=== PATIENT | male | born 1965 | race Caucasian/White ===

== ENCOUNTER 2023-11-27 13:36 | Emergency (ER) | payer OTHER, SELFPAY ==
--- NOTE | 2023-11-27 13:42 | ED.GENADULT ---
HPI - General Adult General Chief complaint: Skin/Abscess/Foreign Body Stated complaint: Posion Jazmine/Rusk Source: patient, RN notes reviewed and old records reviewed Mode of arrival: ambulatory Limitations: no limitations History of Present Illness HPI narrative: 58-year-old male patient presents to [facility] with complaints of rash to bilateral legs and arms that started several days ago. Patient states has been treating at home but is spreading. Patient states was given triamcinolone cream yesterday. Patient is not used. Related Data Allergies Allergy/AdvReac Type Severity Reaction Status Date / Time No Known Allergies Allergy Unverified 11/27/23 13:42 Review of Systems Constitutional: Constitutional: Reports no additional constitutional complaints, Denies body ache(s), Denies chills, Denies fatigue, Denies fever(s) and Denies headache(s) Eyes: Eyes: Reports no additional eye complaints and Denies blurry vision ENT: Reports system reviewed and no additional complaints, except as documented, Denies vertigo, Denies dizziness, Denies ear discharge, Denies otalgia, Denies facial pain, Denies headache(s), Denies nasal congestion, Denies nasal discharge, Denies sinus pain, Denies sinus pressure and Denies sore throat Cardiovascular: Cardiovascular: Reports no additional cardiovascular complaints, Denies chest pain, Denies chest pain at rest, Denies rapid heart rate and Denies dyspnea Respiratory: Respiratory: Reports no additional respiratory complaints, Denies chest congestion, Denies cough, Denies pain on inspiration, Denies pain with cough and Denies dyspnea Gastrointestinal: Gastrointestinal: Denies abdominal pain, Denies diarrhea, Denies nausea and Denies vomiting Integumentary/Breasts: Skin/Breast: Reports rash Neurologic: Reports system reviewed and no additional complaints, except as documented, Denies vertigo, Denies dizziness and Denies headache(s) Endocrine: Endocrine: Denies fatigue [facility] Family History Family History Father Cerebrovascular accident Other Carcinoma of colon Social History Social History Smoking status: Never smoker Second hand tobacco smoke exposure: No Alcohol intake: current Comments At the time of my signature, I reviewed and agree with the nursing past medical, surgical, social, and family history. There is no relevant family history pertinent to the patient complaint. Exam Const: General: cooperative, healthy appearing, no acute distress and well nourished Nutritional Appearance: well nourished Orientation/consciousness: patient oriented x3 Limitations: no limitations HENMT: Head: normal to inspection and normocephalic Ears: external ears normal, TM's normal bilaterally, mastoids normal and Abnormal EAC present Face/Nose/Sinus: normal facial exam Face and sinus: normal facial exam Mouth: Yes Normal oral and palatal mucosa present, Yes oropharynx normal and Yes moist mucous membranes Throat: tonsils normal, uvula midline and no uvular edema Eyes: General: appearance normal, both eyes and all related structures Sclera: sclerae normal Pupils: Equal, round and reactive pupils present Resp: Effort & Inspection: normal respiratory effort, able to speak in complete sentences, no audible wheezes, no cough, no respiratory distress and no retractions Skin: Rashes: rashes noted ( macular vesicular rash) Full body images: 1. macular vesicular rash noted to lower bilateral legs and upper right arm drainage noted to right lower leg Neuro: General: patient oriented x3 Cranial nerves: Yes Equal, round and reactive pupils present Psych: Appearance: grossly normal Mental Status: mental status grossly normal Speech and movement: Normal speech and movement present Affect: normal affect Course Course Emergency Course: Patient is aware of diagnosis, understands
[2023-11-27 13:47] VITALS: BP 121/93; PULSE 51; RESP 18; TEMP 36.2; O2SAT 100
== END 2023-11-27 14:03 | disposition home or self-care (01) ==
PROVIDERS: Emergency Provider Registered Nurse; PCP Internal Medicine
DX: L23.7 Allergic contact dermatitis due to plants, except food (principal)
CPT/HCPCS: 99211; G0463

== ENCOUNTER 2024-02-20 07:00 | Outpatient (NON) | payer OTHER, SELFPAY | END 2024-02-20 07:01 | disposition home or self-care (01) | LOC: ANHLAB 02-21 11:20 | PROVIDERS: PCP Internal Medicine; Visit Provider Plastic Surgery | DX: M72.0 Palmar fascial fibromatosis [Dupuytren] (principal) | CPT/HCPCS: 88305 ==

== ENCOUNTER 2024-02-20 07:56 | Day surgery (SDC) | payer OTHER, SELFPAY ==
--- NOTE | 2024-02-20 06:59 | WPDHPUPDATE1 ---
History and Physical Update Update Date/Time: 02/20/24 06:59 Patient seen and examined in pre-operative holding area. No interval change in medical history or symptoms other than noting slight increased tighness to left ring and middle fingers as well. Exam consistent with slight interval increased contracture of left middle and ring fingers. discussed concurrent fasciectomy for these digits as well. Patient recalls previous discussion of benefits and alternatives to procedure. Continues to desire to proceed with left small, ring and middle finger fasciectomy. Reviewed procedure, post-op expectations and risks including but not limited to bleeding, infection, injury to tendon/nerve/vessel, decreased hand function, stiffness, RSD, no change or worsening of symptoms, recurrence, incomplete release. I discussed the possible use of assistants and their participation in the case. Patient stated understanding and signed the consent form wishing to proceed.
--- NOTE | 2024-02-20 07:00 | P.OP_ITS ---
Procedure Note - Detailed Date of Procedure 02/20/24 Pre-op Diagnosis left small, ring and middle finger dupuytren contracture Post-op Diagnosis Same Procedure Performed left small, middle and ring finger fasciectomy Surgeon Marianne Ruiz MD Screen Tender Helper Bran Martinez PA-C Anesthesia MAC Description of Procedure INFORMED CONSENT: The patient was seen and examined and marked in the pre-op area.? The patient signed the consent form. PROCEDURE IN DETAIL:The patient taken back to OR on the stretcher in supine position. Time out performed with anesthesia, surgeon and staff agreeing on patient's name site and surgery to be performed SCDs were placed on the lower extremities and inflated. A tourniquet was placed on {left} upper extremity and antibiotics given IV After anesthesia administered sedation I injected {6}cc 1%lido and 0.5% marcaine plain at the operative site The?{left upper extremity}?was prepped and draped in sterile fashion the??{left upper extremity} was? exsanguinated with Esmarch bandage and tourniquet inflated to 250mmHg I proceeded with making a longitudinal incision over the left small finger fascial cord through skin and dermis with a 15 blade scalpel. The proximal aspect of this incision was carried radial to go across the cords going to the ring and middle fingers. I elevated my skin flaps to expose the fascial cord to the small finger. I circumferentially dissected around the small finger cord near its origins proximally in the palm with the Littler scissors. I then transected the cord proximally. I proceeded with anterograde dissection of the cord identifying and protecting the neurovascular bundles while doing so. I proceeded with resection of the cord until I was able to achieve full extension of the MP and PIP joint. I irrigated with normal saline. I constructed Z- plasties crossing the flexion creases of the palm in MP joint. I closed the skin with 4-0 chromic. I elevated skin flap over the middle and ring finger cord, identified the fascial cords, circumferentially disseted around the cord and transected it and excised it in anterograde faschion until I was able to achieve full extension of the middle and ring finger mpjoints with minimal force. I irrigated with normal saline and closed skin with 4-0 chromic A dressing of xeroform, 4x4, rosanna, and an ulnar gutter splint was applied for patient safety, security, and comfort and secured with an bronwyn bandage after the tourniquet was let down noting the hand was warm and well perfused. The patient was then awaken from anesthesia and transferred to the recovery room in stable condition.? Complications - none EBL- 0cc Disposition - home in stable conditions bran martinez pa-c was essential for positioning, retraction, closure and dressing placement [facility] Billing Surgery - Charge Forward: Surgery Billing ([id number] [id number],59 same for bran adding modifier )
[2024-02-20 09:34] VITALS: BP 131/97; PULSE 46; RESP 14; TEMP 36.6; O2SAT 100
[2024-02-20] MEDS: LACTATED RINGERS 1,000 ML 30 ML IV CONT (09:45)
--- NOTE | 2024-02-20 09:45 | P.PNAN_ITS ---
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) Patient Data Age: 59 Gender: M Height: 1.91 m Weight: 108.4 kg Last Vital Signs Temp 36.6 C 02/20/24 09:34 Pulse 46 L 02/20/24 09:34 Resp 14 02/20/24 09:34 BP 131/97 H 02/20/24 09:34 Pulse Ox 100 02/20/24 09:34 O2 Del Method Room Air 02/20/24 09:34 Allergies Allergy/AdvReac Type Severity Reaction Status Date / Time No Known Allergies Allergy Verified 02/20/24 09:26 Home Medications Medication Instructions Recorded Confirmed Type acyclovir 400 mg tablet 400 mg PO TID #30 tabs 01/15/24 02/20/24 Rx Fish Oil 1 tab-cap PO DIRECTED 02/07/24 02/20/24 History Glucosamine 1 tablet PO DIRECTED 02/07/24 02/20/24 History multivitamin 1 tablet PO DAILY 02/07/24 02/20/24 History tramadol 50 mg tablet 50 mg PO Q6H PRN pain #12 tabs 02/20/24 Rx Patient hx anesthesia problems: none Family hx anesthesia problems: none Results Review: All pre-operative results and documents have been reviewed as part of the pre- operative evaluation. [facility] Family History Family History Father Cerebrovascular accident Other Carcinoma of colon Social History Social History Smoking status: Never smoker Second hand tobacco smoke exposure: No Alcohol intake: current Drinks per week: 7 Substance use: unknown Substance use type: does not use Current Housing: Decline to Answer Concerned About Future Housing: Decline to Answer Difficulty Paying Gas/Electric Bills: Decline to Answer Difficulty Paying for Meds: Decline to Answer Currently Unemployed: Decline to Answer Education: Decline to Answer Difficulty w/ Childcare or Family Care: Decline to Answer Living arrangements: with family Anes - Eval Final PreProcedure Day of Procedure 02/20/24 09:45 Patient weight: overweight Heart: regular rate and rhythm Lungs: clear to auscultation Airway: Mallampati scale class II Neurological: alert and oriented Last oral intake: >/= 8 hours ASA classification: II Emergent: no Anesthetic plan: proceed Anesthesia type and monitoring: general GIVS and standard monitoring Results Review: All pre-operative results and documents have been reviewed as part of the pre-operative evaluation. Informed Consent: The patient's anesthetic plan and its attendant risks and benefits were discussed with the patient/family/POA. Questions were solicited and answers provided to the satisfaction of the patient/family/POA.
[2024-02-20] MEDS: ceFAZolin SODIUM 2 GM/20 ML SW SYRINGE IV PUSH (10:23)
[2024-02-20] MEDS: BUPivacaine HCL 0.5% 10 ML AMP INFILTRATE (10:26)
[2024-02-20] MEDS: LIDOCAINE HCL 1% LOCAL INJ 20 ML VIAL 3 ML INFILTRATE (10:26)
--- NOTE | 2024-02-20 10:31 | SUR.PREOP ---
late note 02/20/24 0945. Pt's resting heart rate in pre-op 43-46, Dr. Rodrigez aware. No further orders at this time.
[2024-02-20 11:00] VITALS: BP 106/80; PULSE 42; RESP 16; O2SAT 94
[2024-02-20 11:25] VITALS: BP 105/75; PULSE 40; RESP 16; O2SAT 94
[2024-02-20 11:45] VITALS: BP 114/77; PULSE 41; RESP 16; O2SAT 95
--- NOTE | 2024-02-20 11:47 | WPDANESPN ---
Anes - Prog Note Post-Op Date/Time: 02/20/24 11:47 Cardiovascular status: normal Respiratory status: normal Airway patency: baseline Mental status: baseline Post-Op hydration status: normal Vital Signs: Last Vital Signs Temp 36.6 C 02/20/24 09:34 Pulse 40 L 02/20/24 11:25 Resp 16 02/20/24 11:25 BP 105/75 02/20/24 11:25 Pulse Ox 94 02/20/24 11:25 O2 Del Method Room Air 02/20/24 11:25 Pain Score (VAS): 0 Patient Feedback: Patient satisfied with anesthetic care.
== END 2024-02-20 12:12 | disposition home or self-care (01) ==
LOC: ASC 09:05
PROVIDERS: PCP Internal Medicine; Visit Provider Plastic Surgery
PROC: (CPT 26045; principal; 2024-02-20 10:30)
DX: M24.541 Contracture, right hand (principal)
CPT/HCPCS: 26123; 26125 ×2

== ENCOUNTER → 2024-12-07 16:07 | Outpatient (REF) | payer OTHER, SELFPAY ==
--- OUTSIDE RECORDS SUMMARY | 2024-12-07 18:23 | XMS_ITS | Clinical Summary ---
[facility] Address [address] [place]: Epic Prelude ADT [place] [id number] Care Team Providers Care Supervisor Travel Information Center Name Role Phone Unavailable Primary Care Provider Unavailabl e Immunizations Immunization Administration Dates Next Due INFLUENZA VACCINE QUADRIVALENT 6 MOS UP PF IM ,07/09/2022 Social History Tobacco Use Types Packs/Day Years Used Date Smoking Tobacco: Never Assessed Sex and Gender Information Value Date Recorded Sex Assigned at Not on file Legal Sex Male 3:27 PM CDT Gender Identity Not on file Sexual Orientation Not on file Plan of Treatment Health Maintenance Due Date Last Done Comments DTAP/TDAP/TD VACCINES (1 - Tdap) 1982 COLORECTAL SCREENING 01/21/2008 Colorectal Cancer Screening 01/21/2008 FIT-DNA Q 3 years 01/21/2008 FIT/FOBT Q 1 year 01/21/2008 Flex Sig/CT Colonography Q 5 years 01/21/2008 ZOSTER VACCINE (1 of 2) 2013 INFLUENZA VACCINE (#1) 2024 , 07/09/2022 RSV VACCINE (60+ or ) (1 - 1-dose 75+ series) 2038 PNEUMOCOCCAL VACCINE 0-49 YEARS Aged Out No longer eligible b ased on patient's age to complete this topic Insurance [employer] Commercial
== END ==
LOC: ANHLAB 16:07
PROVIDERS: PCP Internal Medicine; Visit Provider Plastic Surgery
DX: M72.0 Palmar fascial fibromatosis [Dupuytren] (principal)
CPT/HCPCS: 88305